=== PATIENT | male | born 1965 | race Hispanic/Latino ===

== ENCOUNTER 2017-11-30 07:21 | Day surgery (SDC) | payer BC ==
[2017-11-30 07:48] VITALS: BMI 24.7
[2017-11-30] MEDS ORDERED: Lidocaine 1% Inj (20ml) ONE (08:58)
[2017-11-30] MEDS ORDERED: Bupivacaine 0.5% Inj(30mL) ONE (08:58)
[2017-11-30] MEDS ORDERED: Liquid Adhesive TOP ONE (08:58)
--- NOTE | 2017-11-30 10:03 | PCM.SURG1 ---
Surgeon's Initial Post Op Note - Surgeon's Notes Surgeon: Dr. Cuba Battery Recharger: Morgan PGY1; Shayan MS3 Type of Anesthesia: Local Pre-Operative Diagnosis: Right upper arm mass, Right thigh mass Operative Findings: Lipoma of R upper arm; Lipoma of R thigh Post-Operative Diagnosis: R Upper arm Lipoma and R Thigh Lipoma Operation Performed: Excision of Right upper arm and Right Thigh mass Specimen/Specimens Removed: R Upper Arm Mass; R Thigh Mass Estimated Blood Loss: EBL {In ML}: 5 Blood Products Given: N/A Drains Used: No Drains Post-Op Condition: Good Date of Surgery/Procedure: 11/30/17 Time of Surgery/Procedure: 10:03
[2017-11-30 10:13] VITALS: TEMP 98
[2017-11-30 10:16] VITALS: O2SAT 94
[2017-11-30 10:17] VITALS: RESP 18
[2017-11-30 10:35] VITALS: BP 119/85; PULSE 86
--- NOTE | 2017-12-14 06:34 | OP ---
PROCEDURE DATE:11/30/2017 PREOPERATIVE DIAGNOSIS: Multiple masses of the arm and leg. POSTOPERATIVE DIAGNOSIS: Multiple masses of the arm and leg. OPERATION PERFORMED: Local excision of lipoma. SURGEON: Aelx Cuba MD. [place] LAYUP LINE CORE LAYER: Tom Mora DO. DESCRIPTION OF PROCEDURE: In the operating room, the patient was identified by name of procedure, laterality, my adam, initials, his name, number and birthday. The areas were individually prepped with chlorhexidine and draped using a 10 cm x 20 cm drape as necessary. They were individually marked. Then, infiltrated with 1% Xylocaine, in both the arm and the leg. A transverse incision was made down to the fascia. The fascia was opened and the lipoma was very neatly removed. Hemostasis was achieved with the cautery. The incision was closed with Vicryl, followed by subcuticular PDS with Dermabond. The patient was taken to Same Day in good condition. Alex Cuba MD MTDD
== END 2017-11-30 10:40 | disposition home or self-care (01) ==
LOC: OPSURG 07:21
PROVIDERS: ATTEND Surgery
DX: D17.21 Benign lipomatous neoplasm of skin and subcutaneous tissue of right arm (principal); D17.23 Benign lipomatous neoplasm of skin and subcutaneous tissue of right leg